=== PATIENT | female | born 1955 | race Caucasian/White ===

== ENCOUNTER → 2016-12-23 | Outpatient (CLI) | payer OTHER ==
[2014-06-04 23:00] VITALS: BP 164/90
[~2016-12-23] MED LIST: ASPI325T8 PO
--- NOTE | 2016-12-23 13:35 | RAD ---
DATE: 12/23/2016 EXAM: DIGITAL SCREEN BILAT W/CAD HISTORY: Asymptomatic screening mammogram. Family history of breast cancer. COMPARISON: Prior mammograms from 03/14/2016, 04/27/2015, 04/21/2015 This study was interpreted with the benefit of Computerized Aided Detection (CAD). The breast parenchyma shows scattered fibroglandular densities. Breast parenchyma level B. FINDINGS: Bilateral CC and MLO views were performed. Right breast: No suspicious microcalcifications, masses or areas of architectural distortion. Left breast: No suspicious microcalcifications, masses or areas of architectural distortion. Findings are stable from the prior mammogram. IMPRESSION: Negative bilateral mammogram. BI-RADS CATEGORY: 1 NEGATIVE RECOMMENDED FOLLOW-UP: 12M 12 MONTH FOLLOW-UP PQRS compliance statement: Patient information was entered into a reminder system with a target due date 12/23/2017 for the next mammogram. Mammography is a sensitive method for finding small breast cancers, but it does not detect them all and is not a substitute for careful clinical examination. A negative mammogram does not negate a clinically suspicious finding and should not result in delay in biopsying a clinically suspicious abnormality. "Our facility is accredited by the [employer] Mammography Program."
== END | disposition home or self-care (01) ==
LOC: MAMMO 09:40
PROVIDERS: ATTEND Nurse Practitioner
DX: Z12.31 Encounter for screening mammogram for malignant neoplasm of breast (principal); Z80.3 Family history of malignant neoplasm of breast
CPT/HCPCS: G0202; 77067

== ENCOUNTER 2017-02-07 22:52 | Emergency (ER) | payer SELFPAY ==
[~2017-02-07] VITALS: Ht 162.6 cm; Wt 92.5 kg
--- NOTE | 2017-02-07 23:27 | ED.ADGEN ---
Past History Past Medical History: CAD, COPD, Hypertension, ID, Other Past Surgical History: Hysterectomy, Other Smoking: Cigarettes Alcohol Use: None Drug Use: None Adult General Chief Complaint Chief Complaint " My nose is bleeding...".. It has stopped twice before... but I am on Plavix and Aspirin for my heart and stents.....and I am under a lot of stress.. My just diet of terminal cancer... 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 the is Monday.." HPI HPI Patient is a 61 year old female who presents with above hx and complaints Rt. nasal epistaxis. Patient has no other anticoagulants other than Plavix and aspirin. Patient had been blowing her nose hard before the onset of bleeding. Is no family history coagulopathy or with pt. Turbinates are slightly edematous and appears to have a stable clot in the [place] area. No active bleeding at this time. No bleeding retropharyngeal. Patient cleared nasal y blowing. Application of Jun-Synephrine, Hurricaine and Polysporin applied. Rechecked area 30 minutes later and still good hemostasis. Review of Systems Review of Systems Constitutional: Denies fever or chills [] Eyes: Denies change in visual acuity, redness, or eye pain [] HENT: History of nasal congestion and epistaxis. Denies sore throat [] Respiratory: Denies cough or shortness of breath [] Cardiovascular: No additional information not addressed in HPI [] GI: Denies abdominal pain, nausea, vomiting, bloody stools or diarrhea [] : Denies dysuria or hematuria [] Musculoskeletal: Denies back pain or joint pain [] Integument: Denies rash or skin lesions [] Neurologic: Denies headache, focal weakness or sensory changes [] Endocrine: Denies polyuria or polydipsia [] Family History Family History just Current Medications Current Medications Current Medications Medications (Trade) Dose Ordered Sig/Jina Start Time Stop Time Status Last Admin Dose Admin Benzocaine (Hurricaine One) 2 spray 1X ONCE 02/07/17 23:45 02/07/17 23:46 DC 02/07/17 23:45 2 SPRAY Mupirocin (Bactroban) 4 alejandro ONCE ONCE 02/07/17 23:45 02/07/17 23:46 DC 02/07/17 23:45 4 ALEJANDRO Phenylephrine HCl (Jun-Synephrine 1% Nasal) 2 drop 1X ONCE 02/07/17 23:45 02/07/17 23:46 DC 02/07/17 23:45 2 DROP See Nursing for home meds Allergies Allergies Allergies Coded Allergies Type Severity Reaction Last Updated Verified No Known Drug Allergies 12/02/13 No Physical Exam Physical Exam Constitutional: moderate distress, non-toxic appearance. [] HENT: Normocephalic, atraumatic, bilateral external ears normal, oropharynx moist, no oral exudates, nose as per HPI Eyes: PERRLA, EOMI, conjunctiva normal, no discharge. [] Neck: Normal range of motion, no tenderness, supple, no stridor. [] Cardiovascular:Heart rate regular rhythm, no murmur [] Lungs & Thorax: Bilateral breath sounds equal apex with scattered wheezes on auscultation [] Abdomen: Bowel sounds normal, soft, no tenderness, no masses, no pulsatile masses. Old surgery scars Skin: Warm, dry, no erythema, no rash. No petechia Back: No tenderness, no CVA tenderness. [] Extremities: No tenderness, no cyanosis, no clubbing, ROM intact, no edema. [] Neurologic: Alert and oriented X 3, normal motor function, normal sensory function, no focal deficits noted. [] Psychologic: Affect anxious, judgement normal, mood depressed Current Patient Data Vital Signs Vital Signs Date Time Temp Pulse Resp B/P (MAP) Pulse Ox O2 Delivery O2 Flow Rate FiO2 02/07/17 23:00 98.2 78 18 Room Air EKG EKG [] Radiology/Procedures Radiology/Procedures [] Course & Med Decision Making Course & Med Decision Making Pertinent Labs and Imaging studies reviewed. (See chart for details) Pt. to apply polysporin 4 x day. DO NOT Blow nose. May sniff. Hold ASA and Plavix x 24 hrs. Follow up primary. Return if active bleeding. May need packing. [] Final Impression Final Impression 1. Epistaxis[]- Rt, [facility] area Problems: Dragon Disclaimer Dragon Disclaimer This electronic medical record was generated, in whole or in part, using a voice recognition dictation system. SHERRY ROMAN MD Feb 07, 2017 23:27
[2017-02-07] MEDS ORDERED: BENZOCAINE ONE 20% MUCOSAL SPRAY. MM (23:45)
[2017-02-07] MEDS ORDERED: MUPIROCIN 2% TOPICAL OINTMENT 22GM TUBE. TP ONE (23:45)
[2017-02-07] MEDS ORDERED: PHENYLEPHRINE 1% NASAL DROP 30ML BOTTLE. NS ONE (23:45)
[2017-02-08 00:40] VITALS: BP 145/88
== END 2017-02-08 00:44 | disposition home or self-care (01) ==
LOC: ER 22:52
DX: R04.0 Epistaxis (principal); I25.10 Atherosclerotic heart disease of native coronary artery without angina pectoris; J44.9 Chronic obstructive pulmonary disease, unspecified; I10 Essential (primary) hypertension; I25.2 Old myocardial infarction; F17.210 Nicotine dependence, cigarettes, uncomplicated
CPT/HCPCS: 99284

== ENCOUNTER → 2018-03-01 | Outpatient (CLI) | payer OTHER ==
--- NOTE | 2018-03-02 09:03 | RAD ---
DATE: 03/01/2018 1:00 PM EXAM: DIGITAL SCREEN BILAT W/CAD HISTORY: routine screening evaluation. COMPARISON: 04/27/2015 Bilateral full field craniocaudal and mediolateral oblique images were obtained using digital technique. This study was interpreted with the benefit of Computerized Aided Detection (CAD ). Breast Density: The breast parenchyma shows scattered fibroglandular densities. Breast parenchyma level B. FINDINGS: Benign calcifications are present. No suspicious masses, microcalcifications or architectural distortion is present to suggest malignancy in either breast. The visualized axillae are unremarkable. IMPRESSION: No mammographic evidence of malignancy. BI-RADS CATEGORY: 2 BENIGN FINDING(S) RECOMMENDED FOLLOW-UP: 12M 12 MONTH FOLLOW-UP Annual screening mammography is recommended, unless clinically indicated sooner based on symptoms or change in physical exam. PQRS compliance statement: Patient information was entered into a reminder system with a target due date 03/02/2019 for the next mammogram. Mammography is a sensitive method for finding small breast cancers, but it does not detect them all and is not a substitute for careful clinical examination. A negative mammogram does not negate a clinically suspicious finding and should not result in delay in biopsying a clinically suspicious abnormality. "Our facility is accredited by the [employer]ammography [employer]." MTDD
== END | disposition home or self-care (01) ==
LOC: MAMMO 11:06
DX: Z12.31 Encounter for screening mammogram for malignant neoplasm of breast (principal)
CPT/HCPCS: 77067

== ENCOUNTER → 2019-02-28 | Outpatient (CLI) | payer OTHER ==
--- NOTE | 2019-03-01 09:46 | RAD ---
Examination: ABDOMEN SUPINE UPRIGHT History: Abdominal pain Comparison/Correlation: 08/27/2011 [facility] x-ray one view Findings: Supine and upright views of the abdomen were obtained. Visualized lung bases are clear. No bowel obstruction. Calcific density is present lateral to the right L4 transverse process and this is of indeterminate significance. Calcific densities in pelvis of indeterminate significance are also present. Bony structures are unremarkable. Impression: Normal bowel gas pattern. Electronically signed by: Tyler Hanson MD (03/01/2019 9:43 AM) [facility]
== END | disposition home or self-care (01) ==
LOC: DXRAD 11:21
PROVIDERS: ATTEND Nurse Practitioner Family
DX: R10.9 Unspecified abdominal pain (principal); R19.7 Diarrhea, unspecified
CPT/HCPCS: 74019

== ENCOUNTER → 2019-04-29 | Outpatient (CLI) | payer OTHER ==
--- NOTE | 2019-05-01 19:32 | RAD ---
History: Routine screening. Technique: Bilateral digital mammographic routine views were obtained with CAD - computer aided detection. Comparison: 12/23/2016, 03/01/2018. Findings: Breast Tissue Density B :The breast tissue is composed of mixed fatty and fibroglandular tissue. There are no suspicious masses, microcalcifications or areas of architectural distortion. Impression: Negative mammogram. BI-RADS Category 1: Negative. Normal interval followup. A mammogram does not have 100% sensitivity and therefore a negative imaging study should not delay further work up of a suspicious abnormality. The patient will receive a letter with the results in the mail. Patient information is entered into the reminder system with a target due date for the next screening mammogram. The patient will receive a reminder. "Our facility is accredited by the [employer] Mammography [employer]." BI-RADS 1 -- negative findings (within normal)
== END | disposition home or self-care (01) ==
LOC: MAMMO 09:40
PROVIDERS: ATTEND Nurse Practitioner Family
DX: Z12.31 Encounter for screening mammogram for malignant neoplasm of breast (principal); N64.89 Other specified disorders of breast
CPT/HCPCS: 77067

== ENCOUNTER 2020-01-28 15:13 | Observation (INO) | payer SELFPAY ==
[~2020-01-28] VITALS: Ht 162.6 cm; Wt 108.8 kg
[2020-01-28] MEDS ORDERED: ASPIRIN CHEWABLE 81 MG TABLET. PO ONE (15:45)
[2020-01-28 15:51] LABS: BASO # 0.1 x10^3/uL (0.0-0.2); BASO % 1 % (0-3); EOS # 0.2 x10^3/uL (0.0-0.7); EOS % 2 % (0-3); HEMATOCRIT 40.4 % (36.0-47.0); HEMOGLOBIN 13.3 g/dL (12.0-15.5); LYMPH # 3.8 x10^3/uL (1.0-4.8); LYMPH % 37 % (24-48); MEAN CORPUSCULAR HEMOGLOBIN 30 pg (25-35); MEAN CORPUSCULAR HGB CONC 33 g/dL (31-37); MEAN CORPUSCULAR VOLUME 92 fL (79-100); MONO # 0.7 x10^3/uL (0.0-1.1); MONO % 7 % (0-9); NEUT # 5.4 x10^3uL (1.8-7.7); NEUT % 53 % (31-73); PLATELET COUNT 315 x10^3/uL (140-400); RED BLOOD COUNT 4.38 x10^6/uL (3.50-5.40); RED CELL DISTRIBUTION WIDTH 14.4 % (11.5-14.5); WHITE BLOOD COUNT 10.1 x10^3/uL (4.0-11.0)
--- NOTE | 2020-01-28 15:53 | PHYS DOC ---
Past History Past Medical History: CAD, COPD, High Cholesterol, Hypertension, [place], Other Past Surgical History: Angioplasty, Hysterectomy, Oophorectomy, Other Additional Past Surgical Histo: Cardiac stents x3 Smoking: Cigarettes Alcohol Use: None Drug Use: None General Adult EDM: Chief Complaint: CHEST PAIN HPI: HPI: Patient is a 64-year-old female with history of CAD with 3x stent placement with left-sided chest pain that started an hour and a half ago. Pain radiated into the neck bilaterally and down the right arm. Pain started while she was laying down, she took 2 of her nitro pills, and the pain subsided. She also reported diaphoresis and nausea but no vomiting. She took a baby aspirin this morning at 9 AM. Denies any lightheadedness, abdominal pain, shortness of breath, pain or bilateral lower extremities swelling/pain. Patient is now pain-free and is not nauseous at this time. Denies trauma. Reports chronic cough. Denies known exposure to COVID19. Denies fever/chills. Review of Systems: Review of Systems: Constitutional: Denies fever or chills Eyes: Denies redness or eye pain HENT: Reports mild congestion, denies sore throat Respiratory: Reports cough at baseline, denies shortness of breath Cardiovascular: Reports chest pain that radiated into the bilateral neck and right arm that has now resolved GI: Denies abdominal pain or vomiting; reports nausea : Denies dysuria or hematuria Musculoskeletal: Denies back pain or joint pain Integument: Denies rash or skin lesions Neurologic: Denies headache, focal weakness or sensory changes Complete systems were reviewed and found to be within normal limits, except as documented in this note. Heart Score: HEART Score for Chest Pain: HEART Score for Chest Pain Response (Comments) Value History Highly Suspicious 2 ECG Normal 0 Age >45 - < 65 1 Risk Factors >3 Risk Factors or Hx CAD 2 Troponin < Normal Limit 0 Total 5 Current Medications: Current Meds: Current Medications Medications (Trade) Dose Ordered Sig/Jina Start Time Stop Time Status Last Admin Dose Admin Aspirin (Aspirin Chewable) 243 mg 1X ONCE 01/28/20 15:45 01/28/20 15:46 UNV Allergies: Allergies: Allergies Coded Allergies Type Severity Reaction Last Updated Verified lisinopril Allergy Unknown 01/28/20 Yes Physical Exam: PE: Constitutional: Well developed, well nourished, no acute distress, non-toxic appearance HENT: Normocephalic, atraumatic Eyes: PERRL, EOMI, conjunctiva normal, no discharge Neck: Normal range of motion, no tenderness, supple Lungs & Thorax: No respiratory distress, equal chest rise and fall Abdomen: Soft, no tenderness Skin: Warm, dry, no erythema, no rash Extremities: No tenderness, ROM intact, 1+ BLE edema Neurologic: Alert and oriented X 3, no focal deficits noted Psychologic: Affect normal, judgment normal EKG: EKG: @ 1523, 73 bpm, normal sinus rhythm with no ST elevation, QRS 76 ms, QTc 433 ms Radiology/Procedures: Radiology/Procedures: PROCEDURE: CHEST PA & LATERAL CHEST PA LATERAL History: Reason: chest pain / Spl. Instructions: / History: Comparison: March 17, 2017. Findings: No consolidation or pleural effusion. Normal heart size. No pneumothorax. Chronic appearing upper lumbar compression fracture. Calcified left midlung nodule, likely prior granulomatous disease. Impression: 1. No acute cardiopulmonary process. Electronically signed by: Jose Sofia DO (01/28/2020 3:56 PM) [facility] Course & Med Decision Making: Course & Med Decision Making Pertinent Labs and Imaging studies reviewed. (See chart for details) Patient presented to the ED with left-sided chest pain similar to cardiac chest pain she has experienced with previous myocardial infarction. Pain subsided after she took 2 nitro. Her last myocardial infarction was in 2010, and she has had 3 stents placed. 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 Additional aspirin was given. Chest x- ray, EKG, trops were ordered. EKG revealed no ST elevation, trop WNL. Heart score of 5, patient will most likely be admitted for further cardiac work- up. Patient requiring admission for further evaluation and treatment. Discussed with Dr. Bradshaw (hospitalist) who is in agreement with admission. Cardiac consultation placed. Discussed findings and plan with patient, who acknowledges understanding and agreement. Dragon Disclaimer: Stefania Disclaimer: This electronic medical record was generated, in whole or in part, using a voice recognition dictation system. Departure Departure: Impression: Primary Impression: Chest pain Qualified Codes: R07.9 - Chest pain, unspecified Disposition: 09 ADMITTED INPT THIS HOSP Admitting Physician: Marcela Bradshaw Condition: STABLE Referrals: IBAN HOLDER (PCP) NAV MEDINA DO Jan 28, 2020 15:53
--- NOTE | 2020-01-28 15:59 | RAD ---
CHEST PA LATERAL History: Reason: chest pain / Spl. Instructions: / History: Comparison: March 17, 2017. Findings: No consolidation or pleural effusion. Normal heart size. No pneumothorax. Chronic appearing upper lumbar compression fracture. Calcified left midlung nodule, likely prior granulomatous disease. Impression: 1. No acute cardiopulmonary process. Electronically signed by: Jose Sofia DO (01/28/2020 3:56 PM) [facility]
[2020-01-28 16:01] LABS: CALCIUM 9.6 mg/dL (8.5-10.1); CREATININE 1.3 mg/dL (0.6-1.0); GFR 41.2; POTASSIUM 4.5 mmol/L (3.5-5.1)
--- NOTE | 2020-01-28 16:14 | EKG ---
[address] [address] Test Date: 2020-01-28 Test Time: 15:23:09 Pat Name: NELSY HICKMAN Department: Room: Gender: F Survey Analyst: GADIEL : 1955 Requested By: NAV MEDINA Order Number: [id number] Reading MD: Measurements Intervals [place] Rate: 73 P: 36 NC: 158 QRS: 24 QRSD: 76 T: 58 QT: 390 QTc: 433 Interpretive Statements SINUS RHYTHM NORMAL ECG RI6.02 No previous ECG available for comparison
[2020-01-28 16:17] LABS: ALBUMIN 3.8 g/dL (3.4-5.0); ALBUMIN/GLOBULIN RATIO 1.1 (1.0-1.7); MAGNESIUM 2.2 mg/dL (1.8-2.4); TOTAL BILIRUBIN 0.2 mg/dL (0.2-1.0); TOTAL PROTEIN 7.2 g/dL (6.4-8.2)
[2020-01-28 16:33] LABS: BILIRUBIN,URINE NEG (NEG); CLARITY,URINE CLEAR; COLOR,URINE YELLOW; GLUCOSE,URINE NEG (NEG); NITRITE,URINE NEG (NEG); UROBILINOGEN,URINE 0.2 mg/dL (0.2 mg/dL)
[2020-01-28 16:34] LABS: BACTERIA,URINE 0 /HPF (0-FEW); RBC,URINE OCC /HPF (0-2); SQUAMOUS EPITHELIAL CELL,UR MOD /LPF; WBC,URINE OCC /HPF (0-4)
[2020-01-28] MEDS ORDERED: ONDANSETRON PF 4 MG/2 ML VIAL. IVP PRN (17:30)
[2020-01-28 19:02] VITALS: BP 141/85
--- NOTE | 2020-01-28 19:02 | NUR ---
PATIENT ARRIVED TO ROOM 115 VIA EMS ACCOMPANIED BY STAFF. VS OBTAINED, PATIENT REPORTED NO PAIN AT THIS TIME. PT REPORTED THAT SHE FEELS HUNGRY, NURSING BASE FILLER GOT NOTIFIED TO DELIVER MEAL FOR THE PATIENT. SHIFT CHANGE REPORT GIVEN TO JEWEL WELLS.
[2020-01-28] MEDS ORDERED: VITA25006 PO (21:50)
[2020-01-28] MEDS ORDERED: DEXL60CA2 PO (21:50)
[2020-01-28] MEDS ORDERED: LOVA20TA2 PO (21:50)
[2020-01-28] MEDS ORDERED: CLOP75TA57 PO (21:50)
[2020-01-28] MEDS ORDERED: CELE100C PO (21:50)
[2020-01-28] MEDS ORDERED: METO25TA4 PO (21:50)
[2020-01-28] MEDS ORDERED: ASPI-630 PO (21:50)
[2020-01-28 22:53] VITALS: BP 134/77
--- NOTE | 2020-01-28 23:20 | NUR ---
Pt was sitting at bedside when approached for assessment. Pt was calm and cooperative during assessment. Pt had no complaints of pain at this time and stated "I don't take pain meds, I dont like the way they make me feel." POC was then discussed w/ pt. Verbal understanding was given. Pt. ate box lunched provided by nursing correctional supervisor lieutenant and is not resting in bed comfortably w/ call light in reach.
[2020-01-29 05:17] VITALS: BP 134/80
--- NOTE | 2020-01-29 07:40 | PDOC2 ---
CARDIAC CONSULT CURRENT MEDICATIONS Current Medications Current Medications Aspirin (Aspirin Chewable) 243 mg 1X ONCE PO Last administered on 01/28/20at 15:56; Start 01/28/20 at 15:45; Stop 01/28/20 at 15:46; Status DC Ondansetron HCl (Zofran) 4 mg PRN Q4HRS PRN IVP NAUSEA/VOMITING; Start 01/28/20 at 17:30; Stop 01/29/20 at 17:29 Fentanyl Citrate (Fentanyl 2ml Vial) 50 mcg PRN Q2HR PRN IVP PAIN; Start 01/28/20 at 17:30 Info (FLU VACCINE per PROTOCOL) 1 ea PRN 1X PRN MC PER PROTOCOL; Start 01/29/20 at 09:00; Stop 01/28/20 at 20:14; Status DC Influenza Virus Vaccine Quadrival (Fluzone Quad Syringe) 0.5 ml ONCE ONCE VAX IM ; Start 01/29/20 at 09:00; Stop 01/29/20 at 09:01 Active Scripts Active Reported Noxifol-D3 2,500 Unit-1 mg Tab (Vitamin D3/Folic Acid) 2,500 Unit Tablet 1 Tab PO DAILY 30 Days Dexilant (Dexlansoprazole) 60 Mg Cap. 1 Cap PO DAILY 30 Days Celebrex (Celecoxib) 100 Mg Capsule 1 Cap PO BID Aspirin 81 Mg Tab.chew 81 Mg PO DAILY Plavix (Clopidogrel Bisulfate) 75 Mg Tablet 75 Mg PO DAILY Lovastatin 20 Mg Tablet 1 Tab PO QHS Metoprolol Tartrate 25 Mg Tablet 12.5 Tab PO BID Aspirin 325 Mg Tablet 325 Mg PO DAILY ALLERGIES Allergies: Coded Allergies: lisinopril (Verified Allergy, Unknown, 01/28/20) VITALS Vital Signs Vital Signs Date Time Temp Pulse Resp B/P (MAP) Pulse Ox O2 Delivery O2 Flow Rate FiO2 01/29/20 05:17 98.0 78 18 134/80 (98) 95 Room Air LABS LABS Laboratory Tests Test 01/28/20 15:30 01/28/20 15:55 01/28/20 20:40 01/29/20 00:15 White Blood Count 10.1 x10^3/uL (4.0-11.0) Red Blood Count 4.38 x10^6/uL (3.50-5.40) Hemoglobin 13.3 g/dL (12.0-15.5) Hematocrit 40.4 % (36.0-47.0) Mean Corpuscular Volume 92 fL (79-100) Mean Corpuscular Hemoglobin 30 pg (25-35) Mean Corpuscular Hemoglobin Concent 33 g/dL (31-37) Red Cell Distribution Width 14.4 % (11.5-14.5) Platelet Count 315 x10^3/uL (140-400) Neutrophils (%) (Auto) 53 % (31-73) Lymphocytes (%) (Auto) 37 % (24-48) Monocytes (%) (Auto) 7 % (0-9) Eosinophils (%) (Auto) 2 % (0-3) Basophils (%) (Auto) 1 % (0-3) Neutrophils # (Auto) 5.4 x10^3uL (1.8-7.7) Lymphocytes # (Auto) 3.8 x10^3/uL (1.0-4.8) Monocytes # (Auto) 0.7 x10^3/uL (0.0-1.1) Eosinophils # (Auto) 0.2 x10^3/uL (0.0-0.7) Basophils # (Auto) 0.1 x10^3/uL (0.0-0.2) Prothrombin Time 9.7 SEC (9.4-11.4) Prothromb Time International Ratio 0.9 (0.9-1.1) Activated Partial Thromboplast Time 26 SEC (23-33) Sodium Level 137 mmol/L (136-145) Potassium Level 4.5 mmol/L (3.5-5.1) Chloride Level 102 mmol/L (98-107) Carbon Dioxide Level 24 mmol/L (21-32) Anion Gap 11 (6-14) Blood Urea Nitrogen 19 mg/dL (7-20) Creatinine 1.3 mg/dL (0.6-1.0) Estimated GFR (Cockcroft-Gault) 41.2 BUN/Creatinine Ratio 15 (6-20) Glucose Level 99 mg/dL (70-99) Calcium Level 9.6 mg/dL (8.5-10.1) Magnesium Level 2.2 mg/dL (1.8-2.4) Total Bilirubin 0.2 mg/dL (0.2-1.0) Aspartate Amino Transf (AST/SGOT) 13 U/L (15-37) Alanine Aminotransferase (ALT/SGPT) 20 U/L (14-59) Alkaline Phosphatase 76 U/L (46-116) Creatine Kinase 120 U/L (26-192) Creatine Kinase MB (Mass) 0.8 ng/mL (0.0-3.6) Creatine Kinase MB Relative Index 0.7 % (0-4) Troponin I Quantitative < 0.017 ng/mL (0-0.055) < 0.017 ng/mL (0-0.055) < 0.017 ng/mL (0-0.055) GJ-Vut-Z-Type Natriuretic Peptide 134 pg/mL (0-124) Total Protein 7.2 g/dL (6.4-8.2) Albumin 3.8 g/dL (3.4-5.0) Albumin/Globulin Ratio 1.1 (1.0-1.7) Lipase 113 U/L (73-393) Urine Collection Type Unknown Urine Color Yellow Urine Clarity Clear Urine pH 5.5 Urine Specific [place] 1.025 Urine Protein Neg (NEG-TRACE) Urine Glucose (UA) Neg mg/dL (NEG) Urine Ketones (Stick) Neg mg/dL (NEG) Urine Blood Small (NEG) Urine Nitrite Neg (NEG) Urine Bilirubin Neg (NEG) Urine Urobilinogen Dipstick 0.2 mg/dL (0.2 mg/dL) Urine Leukocyte Esterase Neg (NEG) Urine RBC Occ /HPF (0-2) Urine WBC Occ /HPF (0-4) Urine Squamous Epithelial Cells Mod /LPF Urine Bacteria 0 /HPF (0-FEW) LAUREN CHUN APRN Jan 29, 2020 07:40
--- NOTE | 2020-01-29 08:30 | HP ---
ADMIT DATE: 01/29/2020 ATTENDING PHYSICIAN: Dr. Feliciano. CHIEF COMPLAINT: Chest pain. HISTORY OF PRESENT ILLNESS: The patient is a 64-year-old female admitted last night from the ED with new onset of chest pain at rest, started half an hour before coming to the ED. She has a known history of coronary artery disease with 3 stents in the past, both at [facility] and . The pain radiating to the neck bilaterally down the right arm, she was lying down, she took 2 of the Nitro pills and pain subsided. She was admitted for observation and serial cardiac enzymes. She took a baby aspirin. She also is on scheduled dose of Celebrex. She continues to smoke a pack of cigarettes daily. She is now pain free and is not nauseous at the time of admission. She was admitted for observation and rule out. PAST MEDICAL HISTORY: Significant for coronary artery disease with 3 stents on 2 separate cardiac catheterization, angioplasty, hyperlipidemia, hypertension, hysterectomy and oophorectomy. ALLERGIES: SHE HAS ALLERGIES TO LISINOPRIL. CURRENT MEDICATIONS: Include the following: She was taking Celebrex every day, aspirin, Plavix, Dexilant, lovastatin, metoprolol, vitamin D3, whether she is compliant remains to be seen. SOCIAL HISTORY: She is a smoker. She drinks quite a bit of caffeine. She denies any alcohol use. FAMILY HISTORY: Noncontributory. REVIEW OF SYSTEMS: Significant for the localized chest pain. She has had some tinea, ringworm ____ on the skin of her legs for the last couple of years. She has some urticarial lesion. She says that Benadryl was not helpful, she has not been taking it now. All other systems reviewed and turned to be negative. PHYSICAL EXAMINATION: GENERAL: When I saw her, this is a pleasant, alert female. INITIAL VITAL SIGNS: In the ED showed a blood pressure 133/91, pulse is 81 and regular, she was afebrile. HEENT: Head is without trauma. Pupils are reactive. Sclerae nonicteric. Oropharynx is clear. NECK: Supple, no bruits identified. LUNGS: Otherwise clear. CARDIOVASCULAR: Showed regular heart tones. ABDOMEN: Soft, no guarding. Bowel sounds are hypoactive. EXTREMITIES: Showed no cyanosis or edema. NEUROLOGIC: Focally intact. SKIN: Some mild urticarial lesions in her upper arms, is otherwise warm and dry. No open sores. PERTINENT LABORATORY STUDIES: Chest x-ray showed clear lung armstrong without any acute cardiopulmonary process. EKG is nondiagnostic. Cardiac enzymes initially drawn were negative. Hemoglobin 13.3 g/dL with a white count of 10,100. Electrolytes within normal range. Creatinine 1.3. First set of cardiac enzymes were negative for coronary ischemia. ASSESSMENT: 1. A 64-year-old female with atypical chest pain. 2. Known history of coronary artery disease. 3. Probable NSAID gastritis. 4. Essential hypertension. 5. Hyperlipidemia. 6. Previous angioplasty and stents. PLAN: 1. Observation status. 2. Serial enzymes. 3. Followup visit in the morning. PRIYANKA FELICIANO MD DR: WILBER/addy JOB#: [id number] / [id number]
--- NOTE | 2020-01-29 08:45 | DS ---
DATE OF DISCHARGE: 01/29/2020 ATTENDING PHYSICIAN: Dr. Feliciano. FINAL DISCHARGE DIAGNOSES: 1. Atypical chest pain, coronary ischemia ruled out. 2. Probable NSAID gastritis. 3. Known coronary artery disease with previous stents. 4. Chronic obstructive pulmonary disease and continued tobacco abuse. 5. Hyperlipidemia. 6. Hypertension. 7. History of angioplasty. 8. History of hysterectomy. HISTORY AND PHYSICAL: This is a 64-year-old female, admitted to the ED with left-sided chest pain started an hour and a half prior to coming in, non-exertional. She was admitted for rule out and further evaluation. PHYSICAL EXAMINATION: Please see the dictated note. PERTINENT LABORATORY AND X-RAY STUDIES: Three sets of cardiac enzymes negative for myocardial necrosis. Creatinine stable at 1.3 mg/dL. Electrolytes are all within normal range. Hemoglobin maintained at 13.3 g/dL in a white count of 10,100. COURSE IN THE HOSPITAL: The patient was admitted. Celebrex was stopped. Pain subsided. She had no further symptoms. Diet was advanced. She felt well. Strong encouragement to avoid further Celebrex use and to quit smoking, whether or not she will quit smoking remains to be seen. On the second hospital day, her vital signs are stable. I reassured her that was not her heart. Blood pressure was 130/80, pulse 78 and regular. She is afebrile and oxygen saturation 98% on room air. Lungs were clear. Cardiovascular exam showed regular heart tones. Therefore, she is discharged home with basically the same medication. I have asked her to stop her Celebrex, she should continue her aspirin 1 daily, Plavix 75 mg daily, Dexilant, lovastatin, metoprolol, and vitamin D, dose unchanged. She will follow up with her regular doctor as scheduled. She was discharged from our hospital in stable condition with explicit instructions and followup care. PRIYANKA FELICIANO MD DR: WILBER/addy JOB#: [id number] / [id number]
[2020-01-29] MEDS ORDERED: Influenza vaccine per PROTOCOL. MC PRN (09:00)
[2020-01-29] MEDS ORDERED: FLU VACC QS 2020-21(6MOS+)/PF 0.5 ML SYRINGE. VAX IM ONE (09:00)
--- NOTE | 2020-01-29 09:03 | NUR ---
NURSING NOTE: DISCHARGE PT DISCHARGED VIA WC ACCOMPANIED BY SELF AT 0856. WRITTEN AND DISCHARGE INSTRUCTIONS GIVEN, VERBAL UNDERSTANDING RECEIVED. PT HAD NO QUESTIONS. RUSSELL OVALLE
== END 2020-01-29 09:05 | disposition home or self-care (01) ==
LOC: ER 15:13 → 1 SOUTH 17:25
PROVIDERS: ADMIT Internal Medicine; ATTEND Hospitalist
DX: R07.89 Other chest pain (principal); I25.10 Atherosclerotic heart disease of native coronary artery without angina pectoris; I10 Essential (primary) hypertension; J44.9 Chronic obstructive pulmonary disease, unspecified; K29.70 Gastritis, unspecified, without bleeding; E78.5 Hyperlipidemia, unspecified; E78.00 Pure hypercholesterolemia, unspecified; F17.210 Nicotine dependence, cigarettes, uncomplicated; Z23 Encounter for immunization; Z79.02 Long term (current) use of antithrombotics/antiplatelets; Z95.5 Presence of coronary angioplasty implant and graft; Z90.710 Acquired absence of both cervix and uterus; Z79.82 Long term (current) use of aspirin
CPT/HCPCS: 36415; 71046; 80053; 81001; 82553; 83690; 83735; 83880; 84484; 85025; 85610; 85730; 90471; 90686; 93005; 99285; 99406; G0378; G0379

== ENCOUNTER → 2020-12-02 | Outpatient (CLI) | payer MEDICARE, OTHER ==
[~2020-12-02] MED LIST changes: +ASPI-630 PO; +CELE100C PO; +CLOP75TA57 PO; +DEXL60CA2 PO; +LOVA20TA2 PO; +METO25TA4 PO; +VITA25006 PO
--- NOTE | 2020-12-03 08:57 | RAD ---
INDICATION: 64 years of age asymptomatic female patient presents for screening mammography. TECHNIQUE: Full field craniocaudal and mediolateral oblique images of both breasts were obtained usi ng digital technique with tomosynthesis and also analyzed with computer-aided detection software. COMPARISON: Prior mammographic imaging 03/01/2018, 04/29/2019 . BREAST COMPOSITION: Category B: There are scattered fibroglandular densities. FINDINGS: Benign calcifications are present. Focal asymmetry is seen in the retroareolar left breast approxima tely 5 cm from the nipple, best seen on the MLO view. No suspicious right breast mass, calcification or architectural distortion. The visualized axillae are unremarkable. IMPRESSION: Left breast focal asymmetry, findings for which additional imaging is advised. RECOMMENDATION: The patient will be contacted to return for additional imaging and a supplemental rep ort will follow. Spot compression views and ultrasound recommended. BIRADS 0: INCOMPLETE - NEED ADDITIONAL IMAGING EVALUATION AND/OR PRIOR MAMMOGRAMS FOR COMPARISON. This study was interpreted with the benefit of Computerized Aided Detection (CAD). Patient information is entered into the reminder system with a target due date for the next screening mammogram. Mammography is the most sensitive method for finding small breast cancers, but it does not detect the m all and is not a substitute for careful clinical examination. A negative mammogram does not negate a clinically suspicious finding and should not result in delay in biopsying a clinically suspicious a bnormality. "Our facility is accredited by the [employer] Mammography Program." Electronically signed by: Orestes Morgan MD (12/03/2020 8:55 AM) [id number]
== END ==
LOC: MAMMO 09:11
PROVIDERS: ATTEND Family Medicine
DX: Z12.31 Encounter for screening mammogram for malignant neoplasm of breast (principal)
CPT/HCPCS: 77063; 77067

== ENCOUNTER → 2020-12-23 | Outpatient (CLI) | payer MEDICARE ==
--- NOTE | 2020-12-23 14:30 | RAD ---
DATE: 12/23/2020 EXAM: DIGITAL DIAGNOSTIC LT HISTORY: Recall from screening mammogram for left breast focal asymmetry COMPARISON: Multiple prior exams including 12/02/2020, 04/29/2019, 03/01/2018, and 90 12/04/2016 Breast Density: SCATTERED The breast parenchyma shows scattered fibroglandular densities. Breast parenchyma level B. FINDINGS: The focal asymmetry in the left breast middle depth resolves with spot compression. IMPRESSION: No evidence of malignancy. BI-RADS CATEGORY: 1 NEGATIVE RECOMMENDED FOLLOW-UP: 12M 12 MONTH FOLLOW-UP PQRS compliance statement: Patient information was entered into a reminder system with a target due date for the next mammogram. Mammography is a sensitive method for finding small breast cancers, but it does not detect them all and is not a substitute for careful clinical examination. A negative mammogram does not negate a clinically suspicious finding and should not result in delay in biopsying a clinically suspicious abnormality. "Our facility is accredited by the [employer] Mammography Program."
== END ==
LOC: MAMMO 13:48
PROVIDERS: ATTEND Family Medicine
DX: R92.2 Inconclusive mammogram (principal)
CPT/HCPCS: 77065

== ENCOUNTER → 2021-06-04 | Outpatient (CLI) | payer MEDICARE ==
--- NOTE | 2021-06-04 15:33 | RAD ---
EXAM: Chest, 2 views. HISTORY: Pain. COMPARISON: None. FINDINGS: 2 views of the chest are obtained. There is no infiltrate, pleural effusion or pneumothorax . The heart is normal in size. There is a calcified granuloma within the lateral left mid thorax. IMPRESSION: No acute pulmonary finding. Electronically signed by: Taylor Goncalves MD (06/04/2021 3:30 PM) [id number]
== END ==
LOC: RAD 14:27
PROVIDERS: ATTEND Internal Medicine Pulmonary Disease
DX: J84.10 Pulmonary fibrosis, unspecified (principal); J44.9 Chronic obstructive pulmonary disease, unspecified
CPT/HCPCS: 71046

== ENCOUNTER → 2021-06-14 | Outpatient (CLI) | payer MEDICARE ==
--- NOTE | 2021-06-14 12:45 | RAD ---
CT LOW DOSE LUNG SCREEN HISTORY: LOW DOSE LUNG SCREENING HX: SMOKER X 50 YRS, 1/2 DAY COMPARISON: None. TECHNIQUE: Low-dose noncontrast CT scan of the chest. FINDINGS: Aorta and great vessels: No aneurysm of the aortic arch or thoracic aorta is seen. Mild atherosclerot ic calcification. Thyroid: No significant abnormalities. Mediastinum and hipolito: No mediastinal masses or adenopathy is seen. Esophagus: The visualized esophagus is normal. Heart: The heart is normal in size. There is no pericardial effusion. Heavy coronary artery calcifica tion with left circumflex and right coronary artery stents. Airways, Lungs and Pleura: Mild diffuse bronchial wall thickening. 9 mm right lower lobe and 7 mm lef t upper lobe calcified granulomata. No significant noncalcified pulmonary nodule. No airspace consoli dation or pleural effusion. Upper abdomen: Calcified splenic nodules. Osseous structures and soft tissues: Within normal limits for age. IMPRESSION: 1. Calcified lung parenchymal granulomas. No significant noncalcified pulmonary nodules. 2. Mild diffuse bronchial wall thickening. 3. Heavy coronary artery calcification and coronary artery stents. LUNG RADS: Category 1: Negative. Follow up: Continue annual screening with LDCT in 12 months. Exposure: One or more of the following individualized dose reduction techniques were utilized for thi s examination: 1. Automated exposure control 2. Adjustment of the mA and/or kV according to patient size 3. Use of iterative reconstruction technique. Electronically signed by: Amarjit Fleming MD (06/14/2021 12:43 PM) [id number]
== END ==
LOC: CT 09:52
PROVIDERS: ATTEND Internal Medicine Pulmonary Disease
DX: Z12.2 Encounter for screening for malignant neoplasm of respiratory organs (principal); J84.10 Pulmonary fibrosis, unspecified; J98.09 Other diseases of bronchus, not elsewhere classified; I25.10 Atherosclerotic heart disease of native coronary artery without angina pectoris; D73.89 Other diseases of spleen; F17.210 Nicotine dependence, cigarettes, uncomplicated
CPT/HCPCS: 71271